=== PATIENT | female | born 1950 | race Caucasian/White ===

== ENCOUNTER 2017-05-31 12:50 | Observation (INO) ==
[2017-05-31] MEDS ORDERED: NS 1,000 ML IV ONE (13:17)
[2017-05-31 13:28] LABS: MANUAL DIFF NEEDED? NO
[2017-05-31 13:32] LABS: BASO% 0.2 % (0.0-0.8); EOS# 0.08 X1000 (0.0-0.7); EOS% 0.9 % (0.0-10.0); HEMATOCRIT 41.6 % (37.0-47.0); HEMOGLOBIN 13.7 g/dL (12.0-16.0); LYMPH# 1.99 X1000 (1.2-3.4); LYMPH% 22.4 % (20.5-51.1); MCH 31.4 PG (27-31); MCHC 32.9 g/dL (33-37); MCV 95.2 FL (81-99); MONO# 0.61 X1000 (0.11-0.59); MONO% 6.9 % (1.7-9.3); MPV 11.8 FL (7.4-10.4); NEUT% 69.6 % (42.2-75.2); PLT 223 X1000 (130-400); RBC 4.37 XMIL (4.2-5.4)
[2017-05-31 13:40] LABS: PROTIME 10.5 Seconds (9.2-11.7); PTT 26.6 Seconds (22.0-36.0)
[2017-05-31 13:50] LABS: ALBUMIN 4.1 g/dL (3.5-5.0); CALCIUM 9.6 mg/dL (8.8-10.2); MAGNESIUM 2.1 mg/dL (1.5-2.7); POTASSIUM 4.8 mmol/L (3.5-5.1); TOTAL BILIRUBIN 0.4 mg/dL (0.20-1.00); TOTAL PROTEIN 6.8 g/dL (6.3-8.3)
[2017-05-31] MEDS ORDERED: ZOFRAN IV PRN (14:11)
[2017-05-31] MEDS ORDERED: TYLENOL PO PRN (14:11)
[2017-05-31 18:55] LABS: URINE MICRO REVIEW NEEDED? NO; URINE SOURCE CLEAN CATCH
[2017-05-31 18:58] LABS: BILIRUBIN URINE NEGATIVE (NEGATIVE); BLOOD URINE TRACE (NEGATIVE); COLOR STRAW; GLUCOSE URINE NEGATIVE (NEGATIVE); LEUKOCYTES URINE LARGE (NEGATIVE); NITRITE URINE NEGATIVE (NEGATIVE); PH URINE 5.5; PROTEIN URINE NEGATIVE (NEGATIVE); SP GRAVITY URINE 1.004; TURBIDITY URINE CLEAR (CLEAR); UR EPITHELIAL CELLS <10 /HPF (<10); URINE BACTERIA NEGATIVE /HPF; URINE CULTURE NEEDED? YES; URINE RBC <10 /HPF (<10); UROBILINOGEN URINE NORMAL (NORMAL)
[2017-05-31] MEDS: LOVENOX SUBQ SCH (20:40)
[2017-05-31] MEDS: CRESTOR PO SCH (20:40)
[2017-06-01 04:13] LABS: ALLEN TEST YES; BE -1.9 mmoll (-3.0-3.0); BLOOD TYPE ARTERIAL; DRAW SITE R RADIAL; METHB 1.1 % (0.0-1.5); O2(CT) 18.7 mL/dL (15.0-23.0); PCO2(98.6) 35 mmHg (35-45); PO2(98.6) 94 mmHg (60-100); SAMPLE BLOOD; SAO2 99.1 % (95.0-100.0); THB 13.7 g/dL (11.5-17.4); pH(98.6) 7.41 (7.35-7.45)
[2017-06-01 04:14] LABS: MODALITY ROOM AIR
[2017-06-01 06:47] LABS: MANUAL DIFF NEEDED? NO
[2017-06-01 06:57] LABS: BASO% 0.3 % (0.0-0.8); EOS# 0.09 X1000 (0.0-0.7); EOS% 1.3 % (0.0-10.0); HEMATOCRIT 41.5 % (37.0-47.0); HEMOGLOBIN 13.5 g/dL (12.0-16.0); LYMPH# 1.98 X1000 (1.2-3.4); LYMPH% 28.4 % (20.5-51.1); MCH 30.7 PG (27-31); MCHC 32.5 g/dL (33-37); MCV 94.3 FL (81-99); MONO# 0.52 X1000 (0.11-0.59); MONO% 7.4 % (1.7-9.3); MPV 11.8 FL (7.4-10.4); NEUT% 62.6 % (42.2-75.2); PLT 222 X1000 (130-400)
[2017-06-01 07:23] LABS: CALCIUM 9.6 mg/dL (8.8-10.2); POTASSIUM 5.2 mmol/L (3.5-5.1)
[2017-06-01 07:30] LABS: HEMOGLOBIN A1C 5.6 % (4.8-6.0)
[2017-06-01] MEDS: AVAPRO PO SCH (12:04)
[2017-06-01] MEDS: CELEXA PO SCH (12:04)
[2017-06-01] MEDS: PEPCID PO SCH (12:04)
[2017-06-01] MEDS: LOVENOX SUBQ SCH (19:02)
[2017-06-01] MEDS: CRESTOR PO SCH (20:40)
[2017-06-02 08:06] VITALS: BP 100/66
[2017-06-02] MEDS: CELEXA PO SCH (08:08)
[2017-06-02] MEDS: PEPCID PO SCH (08:08)
[2017-06-02 08:28] LABS: FREE T4 1.19 ng/dL (0.93-1.70)
[2017-06-02] MEDS: AVAPRO PO SCH (09:50)
== END 2017-06-02 10:50 | disposition home or self-care (01) ==
LOC: SUPCPDRO → ED 12:50 → 3N 12:50
PROVIDERS: ADMIT Internal Medicine; ATTEND Family Medicine